=== PATIENT | male | born 1940 | race Caucasian/White ===

== ENCOUNTER 2017-11-19 14:00 | Emergency (ER) | payer OTHER, BC ==
--- NOTE | 2017-11-19 15:34 | PDOC ---
History of Present Illness - History of Present Illness Initial Comments: 11/19/17 15:44 The patient is a 77 year old male, with a significant past medical history of hypertension and hyperlipidemia, who presents to the emergency department s/p fall today. Patient states that he missed a step while walking down his garage steps. Patient then proceeded to fall face first into the concrete. Patient states that the cup he was holding in his hand broke as well as his glasses that he was wearing. Patient sustained superficial cuts to both his hands. Patient also sustained significant gash to the bridge of his nose.. Patient states he was able to get back up on his own. Presently experiencing mild pain and swelling at the bridge of his nose with dried up blood around the site of impact. Patient denies experiencing any difficulty breathing. He denies any recent fevers, chills, headache or dizziness. He denies any recent nausea, vomit, diarrhea or constipation. He denies any recent chest pain or shortness of breath. He denies any recent dysuria, frequency, urgency or hematuria. Patient denies loss of consciousness, denies cervical tenderness. Patient denies history of diabetes, heart attack, stroke. Medications: Amlodipine, Lipitor Allergies: NKA Past surgical history: None reported. Social History: Nonsmoker. Social drinker. Primary Care Physician: Candido Christianson <Azul Robison - Last Filed: 11/19/17 15:51> <Troy Stewart - Last Filed: 11/19/17 16:12> - General Chief Complaint: Injury Stated Complaint: FELL Time Seen by Provider: 11/19/17 15:33 Past History <Azul Robison - Last Filed: 11/19/17 15:51> <Troy Stewart - Last Filed: 11/19/17 16:12> - Past Medical History Allergies/Adverse Reactions: Allergies Allergy/AdvReac Type Severity Reaction Status Date / Time No Known Allergies Allergy Verified 11/19/17 15:26 Home Medications: Ambulatory Orders Amlodipine Besylate 10 mg PO DAILY 11/19/17 Atorvastatin Ca [Lipitor] 10 mg PO DAILY 11/19/17 Review of Systems - Review of Systems Comments:: 11/19/17 15:45 CONSTITUTIONAL: Absent: fever, chills, diaphoresis, generalized weakness, malaise, loss of appetite HEENT: Present: mild pain and swelling to bridge of nose Absent: rhinorrhea, nasal congestion, throat pain, throat swelling, difficulty swallowing, mouth swelling, ear pain, eye pain, visual Changes CARDIOVASCULAR: Absent: chest pain, syncope, palpitations, irregular heart rate, lightheadedness , peripheral edema RESPIRATORY: Absent: cough, shortness of breath, dyspnea with exertion, orthopnea, wheezing, stridor, hemoptysis GASTROINTESTINAL: Absent: abdominal pain, abdominal distension, nausea, vomiting, diarrhea, constipation, melena, hematochezia GENITOURINARY: Absent: dysuria, frequency, urgency, hesitancy, hematuria, flank pain, genital pain MUSCULOSKELETAL: Absent: myalgia, arthralgia, joint swelling SKIN: Present: Cut to bridge of nose. Superficial cuts to both hands. Absent: rash, itching, pallor HEMATOLOGIC/IMMUNOLOGIC: Absent: easy bleeding, easy bruising, lymphadenopathy, frequent infections ENDOCRINE: Absent: unexplained weight gain, unexplained weight loss, heat intolerance, cold intolerance NEUROLOGIC: Absent: headache, focal weakness or paresthesias, dizziness, unsteady gait, seizure, mental status changes, bladder or bowel incontinence PSYCHIATRIC: Absent: anxiety, depression, suicidal or homicidal ideation, hallucinations. <Azul Robison - Last Filed: 11/19/17 15:51> *Physical Exam - Vital Signs Last Vital Signs Temp Pulse Resp BP Pulse Ox 97.3 F L 80 16 125/76 100 11/19/17 15:21 11/19/17 15:21 11/19/17 15:21 11/19/17 15:21 11/19/17 15:21 <Azul Robison - Last Filed: 11/19/17 15:51> Progress Note - Progress Note Progress Note: Physical exam: Alert and oriented no acute distress cheerful and cooperative Afebrile, vital signs stable Head atraumatic. There is no evidence of head injury including abrasion laceration swelling bruising or hematoma. Swelling and tenderness over the bridge of the nose with 5 mm transverse laceration. No bleeding. The wound edges are well approximated and could not be distracted. No septal hematoma. No bleeding from inside the nose. PERRLA 4 mm, fundi benign with sharp disc margins and good central venous pulsations, ears and throat clear. Dentition intact. No oral pharyngeal injury or loose dentition. No tenderness or deformity of the other facial bones including the orbits, maxillary, and mandible Neck without tenderness or deformity, full range of motion in flexion and extension and rotation without pain Chest clear. Equal breath sounds bilaterally. No chest wall rib cage tenderness or deformity CV regular without murmur rub or gallop pulses full and symmetric no JVD or edema no bruits Abdomen soft nontender without mass or organomegaly. No CVAT Spine and pelvis without tenderness or deformity Extremities without trauma except for several superficial abrasions of the dorsum of the right and left hands. No swelling or sign of fracture. Impression: Nasal fracture, laceration, multiple abrasions Plan: The nasal fracture is a small chip and will probably heal without sequelae. Instructed to see ENT specialist if the swelling subsides and there is a nasal deformity or any obstruction to breathing. Wound care. Tetanus immunization. Follow-up with sign of infection or if head injury symptoms develop. Fully ambulatory and in no pain or other distress upon discharge with his to follow-up as directed <Troy Stewart - Last Filed: 11/19/17 16:12> Medical Decision Making - Medical Decision Making 11/19/17 16:04 X-ray reveals a tiny chip fracture of the distal end of the nasal spine. Patient instructed to follow up with ENT specialist if there is a persistent nasal deformity once the swelling goes down. Wounds were scrubbed with saline and dressed with bacitracin. No further bleeding was noted. Wound edges remained well approximated. The laceration of the bridge of the nose. Head injury instructions to the patient and his . Wound care instructions. Recheck if there is any excessive drowsiness or lethargy, or fingers sign of infection in any of the abrasions or laceration. Patient fully ambulatory, steady gait, and in no pain or other distress upon discharge with his to follow-up as recommended. <Troy Stewart - Last Filed: 11/19/17 16:12> *DC/Admit/Observation/Transfer - Attestations Scribe Attestion: 11/19/17 15:46 Documentation prepared by Azul Robison, acting as electromedical equipment repairer for Troy Pérez MD <Azul Robison - Last Filed: 12/29/17 15:51> - Discharge Dispostion Admit: No <JackIrisTroy - Last Filed: 11/19/17 16:12> Diagnosis at time of Disposition: Multiple abrasions Fractured nasal bones Qualifiers: Encounter type: initial encounter Fracture type: closed Qualified Code(s): S02.2XXA - Fracture of nasal bones, initial encounter for closed fracture Facial laceration Qualifiers: Encounter type: initial encounter Qualified Code(s): S01.81XA - Laceration without foreign body of other part of head, initial encounter - Discharge Dispostion Disposition: HOME Condition at time of disposition: Improved - Referrals Referrals: Candido Christianson MD [Primary Care Provider] - 3 days - Patient Instructions Printed Discharge Instructions: DI for Closed Head Injury, DI for Nose Fracture , DI for Abrasion - Post Discharge Activity Forms/Work/School Notes: Back to Work
[2017-11-19 15:40] VITALS: BP 125/76; PULSE 80; TEMP 97.3; BMI 32.3
[2017-11-19] MEDS ORDERED: DIPHTH,PERTUSS(ACELL),TET 0.5 ML DISP.SYRIN IM ONE (16:03)
== END 2017-11-19 16:22 | disposition home or self-care (01) ==
LOC: FER 14:00
PROC: 3E0234Z Introduction of Serum, Toxoid and Vaccine into Muscle, Percutaneous Approach (ICD-10-PCS; principal; 2017-11-19)
DX: S02.2XXA Fracture of nasal bones, initial encounter for closed fracture (principal); S01.81XA Laceration without foreign body of other part of head, initial encounter; T14.8XXA Other injury of unspecified body region, initial encounter; I10 Essential (primary) hypertension; E78.5 Hyperlipidemia, unspecified; W10.9XXA Fall (on) (from) unspecified stairs and steps, initial encounter; Y93.89 Activity, other specified; Y92.008 Other place in unspecified non-institutional (private) residence as the place of occurrence of the external cause
CPT/HCPCS: 70160-TC; 90471; 90715; 99282-25